=== PATIENT | male | born 1985 | race Caucasian/White ===

== ENCOUNTER 2016-08-28 00:32 | Emergency (ER) | payer MEDICAID ==
[2016-08-28 00:37] VITALS: PULSE 82; RESP 16; TEMP 98.1
[2016-08-28] MEDS ORDERED: SKIN ADHESIVE (DERMABOND) 1 EACH TP ONE (01:33)
--- NOTE | 2016-08-28 01:39 | EDPHY ---
H & P Stated Complaint: L GREAT TOE LAC W/ KNIFE - Personal History Current Tetanus Diphtheria and Acellular Pertussis (TDAP): Yes - Medical/Surgical History Hx Asthma: No Hx Chronic Respiratory Disease: No Hx Diabetes: No Hx Cardiac Disease: No Hx Renal Disease: No Hx Cirrhosis: No Hx Alcoholism: No Hx HIV/AIDS: No Hx Splenectomy or Spleen Trauma: No Other PMH: R ankle surgery - Social History Smoking Status: Current every day smoker HPI/ROS: Chief complaint: Left toe laceration History of present illness: This is a 31-year-old male who presents to the emergency department for evaluation treatment of a laceration to his left great toe. Patient dropped a knife on it just prior to arrival. He has noted a small cut on the top of it. There has been some bleeding. Minimal pain. He denies abnormal coolness or paresthesias in the toe. He can still move it without difficulty. His tetanus is up-to-date. (Adal Causey) - Physical Exam Exam: General: Alert, nontoxic Skin: A superficial laceration over the extensor surface of the left great toe. It is explored without evidence of foreign body or deep structure involvement. Musculoskeletal: Patient is flexing and extending his left great toe well. He is ambulating well. Vascular: Capillary refill brisk in the left great toe. Neurologic: Sensation intact in left great toe. (Adal Causey) Constitutional: Initial Vital Signs Temperature (C) 36.7 C 08/28/16 00:35 Heart Rate 82 08/28/16 00:35 Respiratory Rate 16 08/28/16 00:35 Blood Pressure 130/79 H 08/28/16 00:35 O2 Sat (%) 94 08/28/16 00:35 O2 Delivery Mode Room Air Allergies/Adverse Reactions: No Known Allergies Allergy (Unverified 08/28/16 00:35) Home Medications: Medication Instructions Recorded NK [No Known Home Meds] 01/06/16 Medical Decision Making Procedures: Procedure: Laceration repair. Verbal consent was obtained from the patient. The 1 cm laceration on the left great toe was anesthetized in the usual fashion. The wound was irrigated, draped and explored to its base with a gloved finger. There were no deep structures involved. No tendon injury was identified. The wound was repaired with Dermabond. The wound repair was simple. The procedure was performed by myself. (Adal Causey) ED Course/Re-evaluation: Patient seen under the supervision of my secondary supervising physician Dr. Shanta Krishnan. Patient presents to the emergency department for a laceration to his left great toe. His tetanus is up-to-date. The toe is neurovascularly intact. He has good musculoskeletal control. The wound is cleaned, repaired with Dermabond given how superficial it is and dressed. Patient is discharged home. Home care is discussed. He is asked to follow up with a doctor for recheck. Return precautions are given. (Adal Causey) Differential Diagnosis: Included but not limited to laceration, deep structure injury, foreign body contamination (Adal Causey) Other Provider: PHYSICIAN DOCUMENTATION: The patient was evaluated and managed by the Physician Service Manager. My co- signature indicates that I have reviewed this chart and I agree with the findings and plan of care as documented. I am the secondary supervising physician. (Shanta Krishnan) Departure - Departure Disposition: Home, Routine, Self-Care Clinical Impression: Toe laceration Qualifiers: Encounter type: initial encounter Toe: great toe Damage to nail status: without damage Foreign body presence: without foreign body Laterality: left Qualified Code(s): S91.112A - Laceration without foreign body of left great toe without damage to nail, initial encounter Condition: Good Instructions: Laceration (ED), Skin Adhesive Care (ED) Additional Instructions: Follow-up with Podiatry for recheck next week If symptoms worsen or new symptoms develop return to the emergency room for recheck Referrals: NONE *PRIMARY CARE P,. [Primary Care Provider] - As per Instructions Sam Hernandez DPM [Doctor of Podiatric Medicine] - As per Instructions
[2016-08-28 01:47] VITALS: BP 122/78; O2SAT 93
== END 2016-08-28 01:46 | disposition home or self-care (01) ==
PROC: 0HQNXZZ Repair Left Foot Skin, External Approach (ICD-10-PCS; principal; 2016-08-28)
DX: S91.112A Laceration without foreign body of left great toe without damage to nail, initial encounter (principal); F17.200 Nicotine dependence, unspecified, uncomplicated; W26.0XXA Contact with knife, initial encounter; Y93.89 Activity, other specified
CPT/HCPCS: L3260

== ENCOUNTER 2018-07-12 12:32 | Emergency (ER) | payer MEDICAID ==
[2018-07-12 12:38] VITALS: BP 126/66
--- NOTE | 2018-07-12 13:02 | EDPHY ---
H & P Smoking Status: Current every day smoker Time Seen by Provider: 07/12/18 12:40 HPI/ROS: CHIEF COMPLAINT: Pilonidal cyst HISTORY OF PRESENT ILLNESS: 32-year-old immunocompetent male complaining of pilonidal cyst/abscess. Prior history of similar. He has never seen General surgery. No fever no chills no nausea no vomiting. No flu-like symptoms. PRIMARY CARE PROVIDER: REVIEW OF SYSTEMS: 10 systems reviewed and are negative with exception of illness mentioned in the history of present illness PHYSICAL EXAM (Prior to examination, patient consented to physical exam, hands were washed and my usual and customary physical exam procedures followed) 1) GENERAL: Well-developed, well-nourished, alert and oriented. Appears to be in no acute distress. 2) HEAD: Normocephalic 3) HEENT: sclera anicteric 4) LUNGS: Breathing comfortably. 5) SKIN: Cleft of the patient's buttock erythema, fluctuance induration consistent with pilonidal 6) MUSCULOSKELETAL: No surrounding erythema or induration or crepitus. No extension to the perianal region. (Sola Gupta) Constitutional: Initial Vital Signs Temperature (C) 36.5 C 07/12/18 12:33 Heart Rate 71 07/12/18 12:33 Respiratory Rate 18 07/12/18 12:33 Blood Pressure 126/66 H 07/12/18 12:33 O2 Sat (%) 96 07/12/18 12:33 O2 Delivery Mode Room Air Allergies/Adverse Reactions: No Known Allergies Allergy (Unverified 08/28/16 00:35) Home Medications: Medication Instructions Recorded Cephalexin [Keflex] 500 mg PO TID 7 Days cap 07/12/18 P-EPHED HCL/FEXOFENADINE HCL 07/12/18 [MAGED-D 12 HOUR TABLET] MDM/Departure - MDM Procedures: Procedure: Abscess drainage. The patient's abscess was located on the cleft of the buttocks. I obtained verbal consent from the patient to drain the abscess who was informed about the possibility of bleeding and pain. The abscess was incised with a scalpel and a mild amount of purulent drainage was expressed. I irrigated the wound and placed some packing. The patient tolerated the procedure well. The procedure was performed by myself. (Sola Gupta) ED Course/Re-evaluation: Patient will be started on antibiotics. The wound has been packed. Recommend follow up with on-call surgery Dr. Theo Alcala. He feels comfortable being discharged. Tylenol Motrin for discomfort. Care of patient under supervision of secondary supervising physician Dr regina Dupont . (Sola Gupta) I did not see this patient while he was in the emergency department. However his care was discussed with the PA while the patient was in the department. I agree with treatment plan and management (Regina Dupont) - Depart Disposition: Home, Routine, Self-Care Clinical Impression: Pilonidal abscess of ed cleft Condition: Good Instructions: Pilonidal Cyst (ED) Additional Instructions: Return to the ER if you develop fever chills nausea vomiting flu-like symptoms or any other symptoms that concern you. Prescriptions: Cephalexin [Keflex] 500 mg PO TID 7 Days cap Referrals: Theo Alcala MD [Medical Doctor] - 2-3 days, call for appt.
== END 2018-07-12 13:10 | disposition home or self-care (01) ==
PROC: 0H98XZZ Drainage of Buttock Skin, External Approach (ICD-10-PCS; principal; 2018-07-12)
DX: L05.01 Pilonidal cyst with abscess (principal)

== ENCOUNTER 2018-08-14 08:24 | Day surgery (SDC) | payer MEDICAID ==
[~2018-08-14 08:24] MED LIST: BUPIVACAINE/EPI 0.5% 30 ML SDV ONE; HYDROGEN PEROXIDE 236 ML BOTTLE TP ONE; METHYLENE BLUE 0.5% 50 MG/10 ML AMP ONE; cefOXitin SODIUM 2 GM in NS 100 ML IV ONE
[2018-08-14] MEDS ORDERED: LR 1,000 ML IV ONE (08:42)
--- NOTE | 2018-08-14 09:07 | PDHPUP ---
History & Physical Update H&P update statement: This history and physical update is based on an assessment of the patient which was completed after admission or registration (within 24 hours), but prior to the surgery/procedure. H&P update: H&P reviewed & patient examined, no change in patient's condition since H&P completed
[2018-08-14] MEDS ORDERED: cefOXitin SODIUM 2 GM in NS 100 ML IV ONE (09:15)
[2018-08-14] MEDS ORDERED: fentaNYL 100 MCG/2 ML INJ ONE ×3 (09:36→11:20)
[2018-08-14] MEDS ORDERED: LIDOCAINE 2% 5 ML SDV ONE (09:36)
[2018-08-14] MEDS ORDERED: ONDANSETRON 4 MG/2 ML VIAL ONE (09:36)
[2018-08-14] MEDS ORDERED: PROPOFOL 200 MG/20 ML VIAL ONE ×3 (09:36→11:19)
[2018-08-14] MEDS ORDERED: DEXAMETHASONE 4 MG/ML VIAL ONE (09:36)
[2018-08-14] MEDS ORDERED: MIDAZOLAM 2 MG/2 ML VIAL IVP ONE (09:42)
[2018-08-14] MEDS ORDERED: SCOPOLAMINE HYDROBROMIDE 1 MG/3 DAYS PATCH TD SCH (10:15)
--- NOTE | 2018-08-14 10:16 | PDANEPAE ---
ANE Past Medical History - Cardiovascular History Hx Hypertension: No Hx Arrhythmias: No Hx Chest Pain: No - Pulmonary History Hx Oxygen in Use at Home: No Hx Sleep Apnea: No - Neurologic History Hx Cerebrovascular Accident: No Hx Seizures: No - Endocrine History Hx Diabetes: No - Renal History Hx Renal Disorders: No - Liver History Hx Hepatic Disorders: No - Neurological & Psychiatric Hx Hx Neurological and Psychiatric Disorders: No - GI History GERD: no Hx Gastrointestinal Disorders: No ANE Review of Systems Review of Systems: ANE Patient History - Allergies Allergies/Adverse Reactions: No Known Allergies Allergy (Unverified 08/28/16 00:35) - Home Medications Home Medications: P-EPHED HCL/FEXOFENADINE HCL [MAGED-D 12 HOUR TABLET] 07/12/18 [Last Taken ] - NPO status NPO Since - Liquids (Date): 08/13/18 NPO Since - Liquids (Time): 23:30 NPO Since - Solids (Date): 08/13/18 NPO Since - Solids (Time): 20:30 - Smoking Hx Smoking Status: Current every day smoker ANE Labs/Vital Signs - Vital Signs Blood Pressure: 117/73 Heart Rate: 77 Respiratory Rate: 16 O2 Sat (%): 94 ANE Physical Exam - Airway Neck exam: FROM Mallampati Score: Class 2 Mouth exam: normal dental/mouth exam - Pulmonary Pulmonary: no respiratory distress, no rales or rhonchi, clear to auscultation - Cardiovascular Cardiovascular: regular rate and rhythym, no murmur, rub, or gallop - ASA Status ASA Status: I ANE Anesthesia Plan Anesthesia Plan: general endotracheal anesthesia
--- NOTE | 2018-08-14 10:27 | POSTANESTH ---
Post Anesthetic Evaluation Cardiovascular Status: Normal, Stable Respiratory Status: Normal, Stable Level of Consciousness/Mental Status: Can Participate in Eval Pain Control: Adequate, Prn Tx Ordered Nausea/Vomiting Control: Adequate, Prn Tx Ordered Complications Possibly Related to Anesthesia: None Noted
[2018-08-14] MEDS ORDERED: HYDROGEN PEROXIDE 236 ML BOTTLE TP ONE (10:43)
[2018-08-14] MEDS ORDERED: THROMBIN (BOVINE) 5,000 UNIT VIAL TP ONE (11:21)
--- NOTE | 2018-08-14 12:41 | POSTOPPROG ---
Post Op Note Date of Operation: 08/14/18 Surgeon: Theo Alcala Sales Operations Specialist: Karen Olea Anesthesiologist: Maldonado Lam Anesthesia: GET(General Endotracheal) Pre-op Diagnosis: pilonidal cyst Post-op Diagnosis: same Procedure: pilonidal cystectomy Findings: sinus tract connected to off midline tract Inf/Abcess present in the surg proc area at time of surgery?: Yes Depth: Superfical (Skin SQ) EBL: Minimal Complications: none Specimen(s): to path
[2018-08-14 13:28] VITALS: BP 119/77
[2018-08-17] MEDS ORDERED: PATCH REMOVAL 1 EA PATCH TD SCH (10:10)
--- NOTE | 2018-08-17 18:18 | GOP ---
[f rep st] OPERATIVE REPORT DATE OF OPERATION: 08/14/2018 SURGEON: Theo Alcala MD CASHIER CLERK: Karen Olea, JEIMY. ANESTHESIOLOGIST: Dr. Lam. PREOPERATIVE DIAGNOSIS: Complicated pilonidal cyst. POSTOPERATIVE DIAGNOSIS: Complicated pilonidal cyst. PROCEDURE PERFORMED: Complicated pilonidal cystectomy. FINDINGS: The patient was found to have no gross pus. Did have a communication between a fistula in the left buttock and the midline pilonidal sinus. ESTIMATED BLOOD LOSS: Negligible. DESCRIPTION OF PROCEDURE: The patient was taken to the operating room, where he received satisfactor y general endotracheal anesthesia by Dr. Lam. He was placed in a prone jackknife position, prep ped and draped in the usual sterile fashion with his buttocks taped apart. The area was infiltrated with 0.5% Marcaine, and then an elliptical skin incision was made to include the midline pilonidal si nus, and this curved over onto the left buttock to excise the sinus opening. Full-thickness excision was done down to the muscle in the presacral fascia, and the area was removed. There was no methyle ne blue that was crossed. Methylene blue had been injected in the sinus tract and was seen to come o ut the fistula tract. A complete excision was done. Hemostasis was obtained. The wound was infiltr ated with 0.5% Marcaine. The wound was then closed with interrupted 2-0 Vicryl sutures, securing the subcutaneous tissue and fascia down to the presacral fascia. Some topical thrombin was placed in th e wound. The wound was further infiltrated with 0.5% Marcaine, and the skin was closed with a 4-0 Mo nocryl subcuticular suture and Dermabond. He tolerated the procedure well, was taken to the recovery room in good condition. COMPLICATIONS: There were no complications. /[id number]/MODL
== END 2018-08-14 13:15 | disposition home or self-care (01) ==
LOC: FSGY 08:24
PROVIDERS: ATTEND Surgery
PROC: 0JB90ZZ Excision of Buttock Subcutaneous Tissue and Fascia, Open Approach (ICD-10-PCS; principal; 2018-08-14 10:30)
DX: L05.91 Pilonidal cyst without abscess (principal); F17.200 Nicotine dependence, unspecified, uncomplicated
CPT/HCPCS: J0694; J1100; J2405; J2704; J3010; Q9968